=== PATIENT | male | born 1960 | race Caucasian/White ===

== ENCOUNTER 2025-03-15 06:08 | Day surgery (SDC) | payer BC ==
[2025-03-15] MEDS: Lactated Ringers 1,000 ML IV SCH (07:00)
[2025-03-15] MEDS ORDERED: Lidocaine 2% 5 ML SDV ONE (07:21)
[2025-03-15] MEDS ORDERED: Propofol 200 MG/20 ML SDV ONE (07:21)
[2025-03-15] MEDS ORDERED: Lactated Ringers 1,000 ML IV SCH (08:15)
== END 2025-03-15 09:15 | disposition home or self-care (01) ==
LOC: MW.SDS 06:08
PROVIDERS: ATTEND Surgery
DX: K64.8 Other hemorrhoids (principal); K57.31 Diverticulosis of large intestine without perforation or abscess with bleeding; I10 Essential (primary) hypertension; E78.00 Pure hypercholesterolemia, unspecified; K21.9 Gastro-esophageal reflux disease without esophagitis; Z87.891 Personal history of nicotine dependence; Z79.899 Other long term (current) drug therapy
CPT/HCPCS: 45378; J2003; J2704; J7120; 00811